=== PATIENT | female | born 1950 | race Hispanic/Latino ===

== ENCOUNTER 2018-02-06 12:07 | Observation (INO) | payer MEDICARE ==
[~2018-02-06] VITALS: Ht 167.6 cm; Wt 107.6 kg
[~2018-02-06 12:07] MED LIST: Aspirin PO; HYDROCHLOROTHIA25 MG PO; LEVOTHYROXINE PO; LISINOPRIL PO; NORCO 7.5-3251 EACH PO; SIMVASTATIN PO
[2018-02-06 12:50] LABS: BASOPHILS # (AUTO) 0.1 (0.0-0.1); BASOPHILS % 0.9 % (0.0-1.0); EOSINOPHILS # (AUTO) 0.2 (0.0-0.4); EOSINOPHILS % 2.7 % (0.0-6.0); HEMATOCRIT 42.7 % (34.2-44.1); HEMOGLOBIN 13.8 g/dL (12.0-16.0); LYMPHOCYTES # (AUTO) 1.7 (1.0-3.2); LYMPHOCYTES % 29.5 % (18.0-39.1); MEAN CORPUSCULAR HEMOGLOBIN 29.9 pg (28-32); MEAN CORPUSCULAR HGB CONC 32.3 g/dL (31-35); MEAN CORPUSCULAR VOLUME 92.4 fL (81-99); MONOCYTES # (AUTO) 0.3 (0.2-0.8); MONOCYTES % 5.6 % (4.4-11.3); NEUTROPHILS # (AUTO) 3.6 (2.1-6.9); NEUTROPHILS % 61.1 % (38.7-80.0); PLATELET COUNT 195 x10e3/uL (140-360); RED BLOOD COUNT 4.62 x10e6/uL (3.6-5.1); RED CELL DISTRIBUTION WIDTH 13.1 % (11.7-14.4)
[2018-02-06 12:54] LABS: INR 1.03; PROTHROMBIN TIME 12.7 seconds (11.9-14.5)
[2018-02-06 12:55] LABS: PARTIAL THROMBOPLASTIN TIME 28.4 seconds (23.8-35.5)
[2018-02-06] MEDS ORDERED: ONDANSETRON HCL INJ 2 MG/ML VIAL IV STA (12:58)
[2018-02-06 13:05] LABS: ALANINE AMINOTRANSFERASE 24 IU/L (0-55); ALBUMIN 3.8 g/dL (3.5-5.0); ALKALINE PHOSPHATASE 92 IU/L (40-150); ANION GAP 13.9 mmol/L (8-16); BLOOD UREA NITROGEN 15 mg/dL (7-26); BUN/CREATININE RATIO 17 (6-25); CARBON DIOXIDE 29 mmol/L (22-29); CHLORIDE 103 mmol/L (98-107); CREATINE KINASE 41 IU/L (29-168); CREATININE, SERUM 0.86 mg/dL (0.57-1.11); EST GLOMERULAR FILTRATION RATE > 60 ML/MIN (60-); GLUCOSE 265 mg/dL (74-118); POTASSIUM 3.9 mmol/L (3.5-5.1); SODIUM 142 mmol/L (136-145)
--- NOTE | 2018-02-06 13:22 | Diagnostic Imaging Report ---
PROCEDURE: A single AP view of the chest. COMPARISON: None. INDICATIONS: SHORTNESS OF BREATH, MIDSTERNAL CHEST PAIN FINDINGS: Lines/tubes: None. Lungs: The lungs are well inflated and clear. There is no evidence of pneumonia or pulmonary edema. Pleura: There is no pleural effusion or pneumothorax. Heart and mediastinum: The heart and the mediastinum are unremarkable. Bones: No acute bony abnormality. IMPRESSION: No acute cardiopulmonary disease. Dictated by: Jean Carlos Mcknight M.D. on 02/06/2018 at 13:26 Electronically approved by: Jean Carlos Mcknight M.D. on 02/06/2018 at 13:26
[2018-02-06] MEDS ORDERED: NITROGLYCERIN 2% OINT 1 GM PKT TOP ONE (16:00)
[2018-02-06] MEDS ORDERED: ASPIRIN 325 MG TAB PO ONE (18:00)
[2018-02-06 18:27] LABS: BILIRUBIN,URINE NEGATIVE (NEGATIVE); CLARITY,URINE CLEAR (CLEAR); COLOR,URINE YELLOW (YELLOW); EPITHELIAL CELLS,URINE RARE /LPF; KETONES,URINE NEGATIVE (NEGATIVE); LEUKOCYTE ESTERASE ,URINE NEGATIVE (NEGATIVE); MUCUS,URINE FEW (RARE); NITRITE,URINE NEGATIVE (NEGATIVE); PROTEIN,URINE DIPSTICK NEGATIVE (NEGATIVE); RBC,URINE 0-5 /HPF (0-5); URINE UROBILINOGEN 0.2 mg/dL (0.2 - 1); WBC,URINE (MAN) 0-5 /HPF (0-5)
--- NOTE | 2018-02-06 18:54 | Diagnostic Imaging Report ---
EXAMINATION: Head CT HISTORY: Right facial droop for last 4 days, aphasia, right hemianopsia COMPARISON: None. TECHNIQUE: Multidetector axial images were obtained without contrast from the foramen magnum to the vertex . The images were reconstructed using brain and bone algorithms. Thin section brain images were reformatted into coronal and sagittal planes. Intravenous contrast: None. Image quality: Motion/streaking artifact limits the evaluation of the skull base and posterior cranial fossa. FINDINGS: Parenchyma: 1. Few scattered white matter hypodensities, most likely minimal chronic microvascular ischemic changes. 2. No mass or hemorrhage. No CT evidence of acute territorial vascular insult. Extra-axial spaces:No abnormal density. No extra-axial fluid collections Brain volume: Normal for age. Ventricles: No hydrocephalus or displacement. Arteries: No density suggestive of thrombus. Dural sinuses: No abnormal density. Extra-axial spaces: No abnormal density. Foramen magnum: No mass, Chiari malformation, or basilar invagination. Sella: Enlarged, partially empty, mostly CSF filled. Paranasal/mastoid sinuses: Imaged portions unremarkable. Skull/Scalp: No lytic or blastic lesions. No fractures. IMPRESSION: 1. No intracranial hemorrhage or CT evidence of acute territorial cortical vascular insults. 2. Mild chronic microvascular ischemic changes. Signed by: Dr. Kitty Pederson M.D. on 02/06/2018 6:50 PM
[2018-02-06] MEDS ORDERED: SODIUM CHLORIDE 0.9% 1000ML 1,000 ML IV SCH (19:00)
[2018-02-06] MEDS: SODIUM CHLORIDE 0.9% 1000ML 1,000 ML IV SCH (19:01)
[2018-02-06] MEDS ORDERED: MORPHINE SULFATE 2 MG/ML SYR IV PRN (19:15)
[2018-02-06] MEDS ORDERED: ONDANSETRON HCL INJ 2 MG/ML VIAL IV PRN (19:15)
[2018-02-06] MEDS ORDERED: ASPIRIN 81 MG CHEW TAB PO PRN (19:15)
[2018-02-06 20:29] LABS: CREATINE KINASE 31 IU/L (29-168)
[2018-02-06 21:00] VITALS: BP 127/68
[2018-02-06 21:44] VITALS: BP 127/68
[2018-02-06] MEDS ORDERED: HYDROMORPHONE 1MG/1ML INJ IV PRN (22:15)
[2018-02-06] MEDS ORDERED: NITROGLYCERIN 2% OINT 1 GM PKT TOP PRN (22:15)
[2018-02-07] VITALS (9 sets, daily range): BP systolic 111–148; BP diastolic 59–74
[2018-02-07] MEDS: SODIUM CHLORIDE 0.9% 1000ML 1,000 ML IV SCH ×4 (03:01→22:19)
[2018-02-07 03:10] LABS: CREATINE KINASE MB 0.4 ng/mL (0-5.0)
[2018-02-07 05:53] LABS: BASOPHILS # (AUTO) 0.1 (0.0-0.1); BASOPHILS % 0.9 % (0.0-1.0); EOSINOPHILS # (AUTO) 0.2 (0.0-0.4); HEMATOCRIT 36.4 % (34.2-44.1); HEMOGLOBIN 11.8 g/dL (12.0-16.0); LYMPHOCYTES # (AUTO) 1.7 (1.0-3.2); LYMPHOCYTES % 29.2 % (18.0-39.1); MEAN CORPUSCULAR HEMOGLOBIN 29.8 pg (28-32); MEAN CORPUSCULAR HGB CONC 32.4 g/dL (31-35); MEAN CORPUSCULAR VOLUME 91.9 fL (81-99); MONOCYTES # (AUTO) 0.5 (0.2-0.8); NEUTROPHILS # (AUTO) 3.3 (2.1-6.9); NEUTROPHILS % 58.7 % (38.7-80.0); PLATELET COUNT 165 x10e3/uL (140-360); RED BLOOD COUNT 3.96 x10e6/uL (3.6-5.1)
[2018-02-07 06:22] LABS: ANION GAP 10.2 mmol/L (8-16); BLOOD UREA NITROGEN 16 mg/dL (7-26); BUN/CREATININE RATIO 21 (6-25); CALCIUM 8.9 mg/dL (8.4-10.2); CARBON DIOXIDE 27 mmol/L (22-29); CHLORIDE 110 mmol/L (98-107); CHOL/HDL RATIO 3.3 (3.0-3.6); CHOLESTEROL 156 MD/DL (0-199); CREATININE, SERUM 0.75 mg/dL (0.57-1.11); EST GLOMERULAR FILTRATION RATE > 60 ML/MIN (60-); GLUCOSE 126 mg/dL (74-118); HDL CHOLESTEROL 48 MG/DL (40-60); LDL CHOLESTEROL 87 MG/DL (60-130); POTASSIUM 4.2 mmol/L (3.5-5.1); SODIUM 143 mmol/L (136-145); TRIGLYCERIDES 106 MG/DL (0-149)
[2018-02-07] MEDS: ASPIRIN 81 MG ENTERIC COATED PO SCH (10:00)
[2018-02-07] MEDS: LISINOPRIL 10 MG TAB PO SCH (10:00)
[2018-02-07] MEDS ORDERED: ATORVASTATIN CA40 MG PO (10:18)
[2018-02-07] MEDS ORDERED: MELOXICAM7.5 MG PO (10:18)
[2018-02-07] MEDS ORDERED: METFORMIN HCL500 MG PO (10:18)
[2018-02-07] MEDS ORDERED: LISINOPRIL-HCT1 EAC2 PO (10:18)
--- NOTE | 2018-02-07 11:11 | Diagnostic Imaging Report ---
Examination: MRI BRAIN WITHOUT CONTRAST History: Facial droop. Weakness. Comparison studies: Head CT dated 02/06/2018. Technique: Sagittal T2; axial DWI, FLAIR, GRE or SWI, T1, Coronal FLAIR. Intravenous contrast: None Findings: Scalp: No abnormal signal. No masses. Bone marrow: Normal in signal intensity. Brain volume: Adequate for age. No volume loss. Ventricles: Normal in size and configuration. No hydrocephalus. Extra-axial spaces: No abnormalities. Parenchyma: There are scattered punctate and patchy areas of T2/FLAIR hyperintensity in the periventricular and subcortical white matter, nonspecific. No masses, hemorrhage, or acute vascular insults. Suprasellar and sellar region: CSF filled sella. Craniocervical junction: No abnormalities. The foramen magnum is patent. No Chiari malformations. Vessels: Normal flow-voids in the arteries and sinuses. Additional findings:None. IMPRESSION: 1. No acute abnormalities, specifically no acute infarct. 2. Unchanged mild chronic microvascular ischemic change when compared to prior head CT dated 02/06/2018. Signed by: Dr. Diana Caba M.D. on 02/07/2018 11:08 AM
[2018-02-07 11:30] LABS: CREATINE KINASE 27 IU/L (29-168)
[2018-02-07] MEDS ORDERED: METOPROLOL TARTRATE INJ 1 MG/ML VIAL IV PRN (12:00)
[2018-02-07] MEDS ORDERED: HYDRALAZINE HCL 20 MG/ML VIAL IV PRN (12:00)
[2018-02-07 12:31] LABS: MAGNESIUM 1.8 MG/DL (1.3-2.1); PHOSPHORUS 3.3 MG/DL (2.3-4.7)
[2018-02-07 13:04] LABS: FREE THYROXINE INDEX 2.3646 (1.4-3.8); THYROID STIMULATING HORMONE 0.694 uIU/mL (0.350-4.940)
[2018-02-07] MEDS: ENOXAPARIN SOD INJ 40 MG/0.4 ML SYR SC SCH (17:39)
[2018-02-07] MEDS: SIMVASTATIN 80 MG TAB PO SCH (19:56)
[2018-02-07] MEDS ORDERED: ACETAMINOPHEN 325 MG TAB PO PRN (21:00)
[2018-02-07] MEDS: ACETAMINOPHEN 325 MG TAB PO PRN (22:40)
[2018-02-08] VITALS (8 sets, daily range): BP systolic 124–164; BP diastolic 59–88
[2018-02-08] MEDS ORDERED: LEVOTHYROXINE SODIUM 125 MCG TAB PO SCH (06:00)
[2018-02-08 06:37] LABS: BLOOD UREA NITROGEN 13 mg/dL (7-26); BUN/CREATININE RATIO 19 (6-25); CALCIUM 8.6 mg/dL (8.4-10.2); CARBON DIOXIDE 26 mmol/L (22-29); CHLORIDE 110 mmol/L (98-107); CREATININE, SERUM 0.68 mg/dL (0.57-1.11); EST GLOMERULAR FILTRATION RATE > 60 ML/MIN (60-); GLUCOSE 123 mg/dL (74-118); SODIUM 142 mmol/L (136-145)
[2018-02-08] MEDS: LISINOPRIL 10 MG TAB PO SCH (08:27)
[2018-02-08] MEDS: ASPIRIN 81 MG ENTERIC COATED PO SCH (08:27)
[2018-02-08] MEDS: FAMOTIDINE 20 MG TAB PO SCH ×2 (09:41→17:22)
[2018-02-08] MEDS ORDERED: MAGNESIUM/ALUMINUM/SIMETHICONE 30 ML UDC PO ONE (10:00)
[2018-02-08] MEDS: SODIUM CHLORIDE 0.9% 1000ML 1,000 ML IV SCH ×2 (11:55→19:58)
[2018-02-08] MEDS: ACETAMINOPHEN 325 MG TAB PO PRN (15:52)
[2018-02-08] MEDS: ENOXAPARIN SOD INJ 40 MG/0.4 ML SYR SC SCH (17:22)
[2018-02-08] MEDS: SIMVASTATIN 80 MG TAB PO SCH (20:51)
[2018-02-08] MEDS ORDERED: FAMOTIDINE20 MG PO (22:42)
--- NOTE | 2018-02-08 23:56 | Discharge Summary ---
PRINCIPAL DIAGNOSES 1. Transient ischemic attack. 2. Prediabetes with hemoglobin A1c 5.9. 3. Hypothyroidism. 4. Vision changes to right eye. SECONDARY DIAGNOSIS: Obesity. CHIEF COMPLAINT: Vision changes. HISTORY OF PRESENT ILLNESS: This is a 67-year-old woman who developed vision changes. Refer to the H and P for further details. HOSPITAL COURSE: Patient found to have TIA. CT scan of the brain and MRI of the brain were negative for any changes. Ultrasound of the carotid was also negative. Echocardiogram was done which was normal ejection fraction. Patient is doing better with physical therapy. There were no physical deficits. He does have some right eye changes which have improved to some degree. Patient has agreed to follow up with ophthalmology tomorrow. DISCHARGE MEDICATIONS: Per electronic medical record including aspirin, statin, blood pressure medicine. 1. Follow primary care doctor in 1 week. 2. Ophthalmology tomorrow. CONDITION ON DISCHARGE: Stable. DISCHARGE LOCATION: Home. [place] [facility] MD Job#: [id number]
== END 2018-02-08 23:15 | disposition home or self-care (01) ==
LOC: ER 12:07 → ERHOLD 19:01 → MED/SURG 20:32
PROVIDERS: ADMIT Internal Medicine; ATTEND Internal Medicine
DX: G45.9 Transient cerebral ischemic attack, unspecified (principal); I10 Essential (primary) hypertension; E11.9 Type 2 diabetes mellitus without complications; E66.01 Morbid (severe) obesity due to excess calories; E03.9 Hypothyroidism, unspecified; E78.5 Hyperlipidemia, unspecified; Z68.38 Body mass index [BMI] 38.0-38.9, adult; H54.61 Unqualified visual loss, right eye, normal vision left eye
CPT/HCPCS: 36415 ×3; 70450; 70551; 71045; 80048 ×2; 80053; 80061; 81001; 82306; 82550 ×2; 82553 ×2; 82948 ×3; 83036; 83735; 83880 ×2; 84100; 84436; 84443; 84479; 84484 ×2; 84550; 85025 ×2; 85610; 85730; 93005; 93306; 93880; 97116; 97161; 99284; G0378 ×3; G8978; G8979; G8980; J1650 ×2; J2405; J7030 ×3

== ENCOUNTER 2020-07-26 15:11 | Emergency (ER) | payer MEDICARE ==
[~2020-07-26] VITALS: Ht 167.6 cm; Wt 110.7 kg
[~2020-07-26 15:11] MED LIST changes: +ATORVASTATIN CA40 MG PO; +FAMOTIDINE20 MG PO; +LISINOPRIL-HCT1 EAC2 PO; +MELOXICAM7.5 MG PO; +METFORMIN HCL500 MG PO
[2020-07-26] MEDS ORDERED: SODIUM CHLORIDE 0.9% 1000ML 1,000 ML IV STA (15:14)
[2020-07-26] MEDS ORDERED: ASPIRIN 81 MG CHEW TAB PO ONE (15:30)
[2020-07-26 15:46] LABS: BASOPHILS # (AUTO) 0.1 (0.0-0.1); BASOPHILS % 1.2 % (0.0-1.0); EOSINOPHILS # (AUTO) 0.1 (0.0-0.4); EOSINOPHILS % 2.4 % (0.0-6.0); HEMATOCRIT 42.4 % (34.2-44.1); HEMOGLOBIN 13.9 g/dL (12.0-16.0); LYMPHOCYTES # (AUTO) 1.7 (1.0-3.2); LYMPHOCYTES % 29.1 % (18.0-39.1); MEAN CORPUSCULAR HEMOGLOBIN 30.1 pg (28-32); MEAN CORPUSCULAR HGB CONC 32.8 g/dL (31-35); MEAN CORPUSCULAR VOLUME 91.8 fL (81-99); MONOCYTES # (AUTO) 0.3 (0.2-0.8); MONOCYTES % 5.7 % (4.4-11.3); NEUTROPHILS # (AUTO) 3.5 (2.1-6.9); NEUTROPHILS % 61.3 % (38.7-80.0); PLATELET COUNT 179 x10e3/uL (140-360); RED BLOOD COUNT 4.62 x10e6/uL (3.6-5.1); RED CELL DISTRIBUTION WIDTH 12.7 % (11.7-14.4)
[2020-07-26 16:02] LABS: ALBUMIN 4.1 g/dL (3.5-5.0); ALBUMIN/GLOBULIN RATIO 1.3 (0.8-2.0); ANION GAP 16.1 mmol/L (8-16); CALCIUM 9.2 mg/dL (8.4-10.2); CREATININE, SERUM 1.16 mg/dL (0.57-1.11); POTASSIUM 4.1 mmol/L (3.5-5.1)
[2020-07-26 16:06] LABS: CREATINE KINASE MB 0.7 ng/mL (0-5.0)
[2020-07-26 16:19] LABS: ABG HCO3 25 mmol/L (22-26); ABG PCO2 41 mmHg (35-45); ABG PH 7.39 (7.35-7.45); ABG PO2 80 mmHg (80-105)
[2020-07-26 16:20] LABS: ABG TCO2 26
[2020-07-26] MEDS ORDERED: INSULIN REGULAR, HUMAN 100 UNIT/1 ML 3ML VIAL IV STA (16:28)
== END 2020-07-26 16:53 | disposition home or self-care (01) ==
LOC: ER 15:14
DX: E11.65 Type 2 diabetes mellitus with hyperglycemia (principal); R94.4 Abnormal results of kidney function studies; I10 Essential (primary) hypertension; E78.5 Hyperlipidemia, unspecified; E03.9 Hypothyroidism, unspecified; Z86.73 Personal history of transient ischemic attack (TIA), and cerebral infarction without residual deficits; Z96.652 Presence of left artificial knee joint
CPT/HCPCS: 36415; 36600; 80053; 82550; 82553; 82805; 84484; 85025; 93005; 99284; J1817; J7030

== ENCOUNTER 2020-08-08 00:20 | Emergency (ER) | payer OTHER ==
[~2020-08-08] VITALS: Ht 167.6 cm; Wt 110.7 kg
[2020-08-08] MEDS ORDERED: SODIUM CHLORIDE 0.9% 1000ML 1,000 ML IV STA (00:23)
[2020-08-08] MEDS ORDERED: INSULIN REGULAR, HUMAN 100 UNIT/1 ML 3ML VIAL IV STA (00:23)
[2020-08-08 00:43] LABS: BASOPHILS # (AUTO) 0.1 (0.0-0.1); BASOPHILS % 1.5 % (0.0-1.0); EOSINOPHILS # (AUTO) 0.1 (0.0-0.4); EOSINOPHILS % 2.3 % (0.0-6.0); HEMATOCRIT 42.8 % (34.2-44.1); HEMOGLOBIN 13.8 g/dL (12.0-16.0); LYMPHOCYTES % 33.3 % (18.0-39.1); MEAN CORPUSCULAR HEMOGLOBIN 29.7 pg (28-32); MEAN CORPUSCULAR HGB CONC 32.2 g/dL (31-35); MEAN CORPUSCULAR VOLUME 92.2 fL (81-99); MONOCYTES # (AUTO) 0.4 (0.2-0.8); NEUTROPHILS # (AUTO) 3.3 (2.1-6.9); NEUTROPHILS % 55.6 % (38.7-80.0); PLATELET COUNT 182 x10e3/uL (140-360); RED BLOOD COUNT 4.64 x10e6/uL (3.6-5.1); RED CELL DISTRIBUTION WIDTH 12.8 % (11.7-14.4)
[2020-08-08 00:56] LABS: ALBUMIN/GLOBULIN RATIO 1.1 (0.8-2.0); ANION GAP 15.2 mmol/L (8-16); CALCIUM 9.5 mg/dL (8.4-10.2); CREATININE, SERUM 1.29 mg/dL (0.57-1.11); POTASSIUM 4.2 mmol/L (3.5-5.1)
[2020-08-08 01:38] VITALS: BP 132/76
== END 2020-08-08 01:39 | disposition home or self-care (01) ==
LOC: ER 00:24
DX: R42 Dizziness and giddiness (principal); E11.65 Type 2 diabetes mellitus with hyperglycemia; R94.4 Abnormal results of kidney function studies; I10 Essential (primary) hypertension; E78.5 Hyperlipidemia, unspecified; E03.9 Hypothyroidism, unspecified; Z86.73 Personal history of transient ischemic attack (TIA), and cerebral infarction without residual deficits; Z96.652 Presence of left artificial knee joint
CPT/HCPCS: 36415; 80053; 85025; 93005; 99283

== ENCOUNTER 2021-03-14 16:27 | Emergency (ER) | payer MEDICARE, OTHER ==
[~2021-03-14] VITALS: Ht 167.6 cm; Wt 110.7 kg
[2021-03-14] MEDS ORDERED: KETOROLAC TROMETHAMINE 30 MG/ML VIAL IM STA (16:37)
[2021-03-14] MEDS ORDERED: LIDOCAINE 4% PATCH TP SCH (17:00)
[2021-03-14] MEDS ORDERED: DEXAMETHASONE 4 MG TAB PO STA (17:04)
[2021-03-14] MEDS ORDERED: ACETAMINOPHEN 325 MG TAB PO ONE (17:15)
[2021-03-14] MEDS ORDERED: LIDOPATCH1 EACH TOP (17:16)
== END 2021-03-14 17:44 | disposition home or self-care (01) ==
LOC: ER 17:03
DX: M54.9 Dorsalgia, unspecified (principal); I10 Essential (primary) hypertension; E11.9 Type 2 diabetes mellitus without complications; E78.5 Hyperlipidemia, unspecified; E03.9 Hypothyroidism, unspecified; Z86.73 Personal history of transient ischemic attack (TIA), and cerebral infarction without residual deficits; Z79.84 Long term (current) use of oral hypoglycemic drugs
CPT/HCPCS: 99283; J1885; J8540

== ENCOUNTER 2021-04-12 10:53 | Emergency (ER) | payer MEDICARE, OTHER ==
[~2021-04-12] VITALS: Ht 167.6 cm; Wt 83.9 kg
[~2021-04-12 10:53] MED LIST changes: +LIDOPATCH1 EACH TOP
[2021-04-12] MEDS ORDERED: KETOROLAC TROMETHAMINE 60 MG/2 ML VIAL IM ONE (11:15)
[2021-04-12] MEDS ORDERED: ACETAMINOPHEN 325 MG TAB PO ONE (11:15)
[2021-04-12] MEDS ORDERED: AZITHROMYCIN250 MG PO (13:13)
[2021-04-12] MEDS ORDERED: PREDNISONE20 MG PO (13:16)
[2021-04-12 13:37] VITALS: BP 128/74
== END 2021-04-12 13:37 | disposition home or self-care (01) ==
LOC: ER 11:15
DX: R05 Cough (principal); J40 Bronchitis, not specified as acute or chronic; M54.42 Lumbago with sciatica, left side; I10 Essential (primary) hypertension; E11.9 Type 2 diabetes mellitus without complications; Z20.822 Contact with and (suspected) exposure to COVID-19; E78.5 Hyperlipidemia, unspecified; E03.9 Hypothyroidism, unspecified; Z86.73 Personal history of transient ischemic attack (TIA), and cerebral infarction without residual deficits
CPT/HCPCS: 71045; 99283; U0002

== ENCOUNTER 2021-07-26 08:13 | Emergency (ER) | payer MEDICARE, OTHER ==
[~2021-07-26] VITALS: Ht 167.6 cm; Wt 83.9 kg
[~2021-07-26 08:13] MED LIST changes: +AZITHROMYCIN250 MG PO; +PREDNISONE20 MG PO
[2021-07-26] MEDS ORDERED: BROMFED DM COU118 ML PO (08:33)
[2021-07-26] MEDS ORDERED: AZITHROMYCIN250 MG PO (08:33)
[2021-07-26] MEDS ORDERED: IBUPROFEN400 MG PO (08:33)
[2021-07-26 08:38] VITALS: BP 153/81
== END 2021-07-26 08:41 | disposition home or self-care (01) ==
LOC: ER 08:19
DX: J02.9 Acute pharyngitis, unspecified (principal)
CPT/HCPCS: 99282

== ENCOUNTER → 2021-08-09 | Outpatient (CLI) | payer MEDICARE, OTHER ==
[~2021-08-09] MED LIST changes: +BROMFED DM COU118 ML PO; +IBUPROFEN400 MG PO
== END ==
LOC: RAD 10:30
PROVIDERS: ATTEND Family Medicine
DX: R05.3 Chronic cough (principal)
CPT/HCPCS: 71046

== ENCOUNTER 2021-12-06 13:32 | Emergency (ER) | payer MEDICARE ==
[~2021-12-06] VITALS: Ht 167.6 cm; Wt 83.9 kg
[2021-12-06] MEDS ORDERED: MECLIZINE HCL 12.5 MG TAB PO ONE (14:00)
[2021-12-06] MEDS ORDERED: ASPIRIN 81 MG CHEW TAB PO ONE (14:00)
[2021-12-06] MEDS ORDERED: SODIUM CHLORIDE 0.9% 1000ML 1,000 ML IV ONE (14:00)
[2021-12-06] MEDS ORDERED: MECLIZINE HCL 12.5 MG TAB ONE (14:06)
[2021-12-06] MEDS ORDERED: SODIUM CHLORIDE 0.9% 1000ML 1,000 ML ONE (14:06)
[2021-12-06 14:08] LABS: BASOPHILS # (AUTO) 0.1 (0.0-0.1); EOSINOPHILS # (AUTO) 0.2 (0.0-0.4); EOSINOPHILS % 3.4 % (0.0-6.0); HEMATOCRIT 39.6 % (34.2-44.1); HEMOGLOBIN 12.7 g/dL (12.0-16.0); LYMPHOCYTES # (AUTO) 1.9 (1.0-3.2); LYMPHOCYTES % 35.6 % (18.0-39.1); MEAN CORPUSCULAR HGB CONC 32.1 g/dL (31-35); MEAN CORPUSCULAR VOLUME 93.6 fL (81-99); MONOCYTES # (AUTO) 0.4 (0.2-0.8); MONOCYTES % 6.7 % (4.4-11.3); NEUTROPHILS # (AUTO) 2.8 (2.1-6.9); NEUTROPHILS % 53.1 % (38.7-80.0); PLATELET COUNT 180 x10e3/uL (140-360); RED BLOOD COUNT 4.23 x10e6/uL (3.6-5.1)
[2021-12-06 14:29] LABS: ALANINE AMINOTRANSFERASE 22 IU/L (0-55); ALBUMIN 3.3 g/dL (3.5-5.0); ALBUMIN/GLOBULIN RATIO 0.9 (0.8-2.0); ALKALINE PHOSPHATASE 81 IU/L (40-150); BLOOD UREA NITROGEN 12 mg/dL (7-26); BUN/CREATININE RATIO 13 (6-25); CALCIUM 8.9 mg/dL (8.4-10.2); CARBON DIOXIDE 24 mmol/L (22-29); CHLORIDE 107 mmol/L (98-107); CREATINE KINASE 56 IU/L (29-168); CREATININE, SERUM 0.96 mg/dL (0.57-1.11); EST GLOMERULAR FILTRATION RATE 58 ML/MIN (60-); GLUCOSE 255 mg/dL (74-118); SODIUM 140 mmol/L (136-145)
== END 2021-12-06 16:15 | disposition home or self-care (01) ==
LOC: ER 13:40
DX: R42 Dizziness and giddiness (principal); H92.03 Otalgia, bilateral; M79.662 Pain in left lower leg; M79.89 Other specified soft tissue disorders; E11.65 Type 2 diabetes mellitus with hyperglycemia; R10.12 Left upper quadrant pain; M54.9 Dorsalgia, unspecified; G89.29 Other chronic pain; Z96.652 Presence of left artificial knee joint
CPT/HCPCS: 36415; 70450; 71045; 80053; 82550; 82553; 84484; 85025; 93005; 99284; J7030; J8597

== ENCOUNTER 2022-04-09 17:20 | Emergency (ER) | payer MEDICARE, OTHER ==
[~2022-04-09] VITALS: Ht 167.6 cm; Wt 83.9 kg
[2022-04-09] MEDS ORDERED: CYCLOBENZAPRINE5 MG PO (17:56)
[2022-04-09] MEDS ORDERED: HYDROCODON-ACE1 EAC9 PO (17:56)
== END 2022-04-09 18:02 | disposition home or self-care (01) ==
LOC: ER 17:51
DX: M25.512 Pain in left shoulder (principal); S46.812A Strain of other muscles, fascia and tendons at shoulder and upper arm level, left arm, initial encounter; M25.522 Pain in left elbow; G89.29 Other chronic pain; X50.1XXA Overexertion from prolonged static or awkward postures, initial encounter; Y93.84 Activity, sleeping; Y92.89 Other specified places as the place of occurrence of the external cause; E11.9 Type 2 diabetes mellitus without complications
CPT/HCPCS: 99283